=== PATIENT | male | born 1985 | race Caucasian/White ===

== ENCOUNTER 2020-09-04 19:25 | Inpatient (IN) | payer OTHER, SELFPAY ==
--- NOTE | ~2020-09-04 | CT_ITS ---
EXAMINATION: CT FOOT WITHOUT CONTRAST, RIGHT CLINICAL INFORMATION: Rule out abscess. COMPARISON: Previous x-ray from yesterday. TECHNIQUE: Axial images through the right foot without IV contrast. Sagittal and coronal reconstructions on the technologist workstation were performed. This CT examination was performed using dose optimization techniques as appropriate, variously including the following: *Automated exposure control *Adjustment of mA and/or kV according to patient size (this includes techniques or standardized protocols for targeted exams where dose is matched to indication/reason for exam; i.e. extremities or head) *Use of iterative reconstruction technique DLP: 180 mGy-cm FINDINGS: Bone alignment is normal. No fracture or dislocation is seen. Joint spaces are normal. There is diffuse subcutaneous edema of the foot. There is question of a small fluid collection adjacent to the plantar 5th metatarsal bone, for example, coronal reconstructed image 64 and sagittal reconstructed image 44 questionable for a small abscess. This measures 1 cm. No soft tissue foreign body is seen. CT/CT foot RT wo con IMPRESSION: Diffuse subcutaneous edema. Increased soft tissue adjacent to the plantar 5th metatarsal bone questionable for a soft tissue abscess.
--- NOTE | ~2020-09-04 | XR_ITS ---
EXAMINATION: XR FOOT, RIGHT CLINICAL INFORMATION: Infection. Rule out osteomyelitis. COMPARISON: None TECHNIQUE: AP, lateral, and oblique views of the right foot. FINDINGS: The bones and soft tissues are normal. No fracture. Alignment is anatomic. Joint spaces are maintained. XR/XR foot RT min 3V IMPRESSION: Normal right foot.
[2020-09-04 19:59] VITALS: BP 144/84; PULSE 80; RESP 28; TEMP 37.2; O2SAT 98; BMI 27.4
[2020-09-04 21:05] VITALS: BP 139/65; PULSE 84; RESP 16; O2SAT 98
--- NOTE | 2020-09-04 21:44 | ED_ITS ---
HPI - Wound/Laceration General Chief Complaint: Wound/Laceration Stated Complaint: ?Feet infection Time Seen by Provider: 09/04/20 21:40 Source: patient Mode of arrival: ambulatory History of Present Illness HPI narrative: 35-year-old male history of IVDA, otherwise no other significant medical history who presents with 1 week of worsening right foot redness /pain and unknown injury to the right foot, but patient denies injecting into his feet. Patient does report he has had chills but denies any fever, nausea, vomiting, abdominal pain, diarrhea, urinary pain/ burning /frequency, shortness of breath, chest pain / palpitations. Patient states his last use drugs was yesterday and that he typically uses heroin/ crack/cocaine /marijuana /daily cigarette smoker. Patient does have a remote history of depression and suicidality, but states he is not suicidal or homicidal today. Related Data Allergies Allergy/AdvReac Type Severity Reaction Status Date / Time Penicillins Allergy Severe Anaphylaxis Verified 09/04/20 21:42 Review of Systems Review of Systems: Pertinent positives and negatives as stated in HPI and 10 point review of systems is otherwise negative. PMFSH Past Medical History Source: nursing notes reviewed Medical History No known health problems Surgical History No history of previous surgery Social History Social History Advance Directives: No Advance Directives Information Provided: Yes Physical Exam Vital Signs: Vital Signs: Last Vital Signs Temp 99.0 F 09/04/20 19:59 Pulse 79 09/04/20 22:38 Resp 16 09/04/20 22:38 BP 139/65 09/04/20 21:05 Pulse Ox 100 09/04/20 22:38 Body Mass Index 27.4 VITAL SIGNS: Reviewed. GENERAL: Well developed, well nourished, in no acute distress. HEAD: Normocephalic/atraumatic EYES: PERRLA, EOMI EARS: Ext canals without abnormality NOSE: Nares patent bilateral OROPHARYNX: no oral lesions noted, posterior pharynx clear and non-erythematous without noted tonsillar enlargement/erythema/exudates NECK: Supple, no adenopathy LUNGS: Normal breath sounds. No adventitious sounds or accessory muscle use. SpO2<98> CARDIOVASCULAR: Regular rate and rhythm without noted murmurs ABDOMEN: Soft, non-tender, non-distended with bowel sounds. RIGHT FOOT: Entire foot is erythematous with laceration noted over the 5th tarsal, there is ulceration between the 4th and 5th digits, as well as a point of abscess over the MTP, palpable DP/PT with capillary refill less than 3 seconds and otherwise sensation is intact. LEFT FOOT: There is noted abrasion over the medial dorsum of the foot that does not appear to be infected and otherwise there are no ulcerations/ lesions noted to this left foot. SKIN: Inspection of the skin reveals no rashes NEUROLOGIC: Alert and oriented x 4. Strength and sensation to light touch were grossly intact x 4. Course Course Course Narrative: This is a 35-year-old male with history and clinical presentation consistent with cellulitis of the right foot, will investigate com ponent of osteomyelitis, patient will receive antibiotics and will be admitted. review of all investigations consistent with right foot cellulitis with elevated ESR / CRP, patient received antibiotics, no imaging evidence OM, this case was discussed with inpatient hospitalist who is agreeable for admission. Patient is also noted to be mildly hypokalemic and will receive IV repletion after confirming magnesium levels. MDM - Wound/Laceration Lab Data Result diagrams: 09/04/20 22:27 09/04/20 22:27 Labs: Lab Results 09/04/20 09/04/20 09/04/20 Range/Units 22:27 22:27 22:27 WBC 10.1 (4.8-10.8) X10*3/uL RBC 4.39 L (4.60-5.80) X10*6/uL Hgb 13.6 L (14.0-18.0) g/dl Hct 38.8 L (42-52) % MCV 88.4 (80-98) fL MCH 31.0 (27.0-33.0) pg MCHC 35.1 (31.0-36.0) g/dl RDW 12.2 (11.0-16.0) % Plt Count 276 (160-400) X10*3/uL MPV 9.6 (9.4-12.4) fL Immature Gran % (Auto) 0.3 (0.0-0.4) % Neut % (Auto) 75.3 H (45-73) % Lymph % (Auto) 13.8 L (20-40) % [place] % (Auto) 9.5 (2-11) % Eos % (Auto) 0.9 (0-4) % Baso % (Auto) 0.2 (0-2) % Lymph # (Auto) 1.4 (1.2-4.9) X10*3/uL [place] # (Auto) 1.0 (0.1-1.2) X10*3/uL Eos # (Auto) 0.1 (0.0-0.4) X10*3/uL Baso # (Auto) 0.0 (0.0-0.2) X10*3/uL Abs Immat Gran (auto) 0.03 (0.00-0.03) X10*3/uL Absolute Neuts (auto) 7.6 (2.0-8.3) X10*3/uL Absolute Nucleated RBC 0.000 (0.0-0.012) X10*3/uL Nucleated RBC % (auto) 0.0 (0.0-0.2) /100WBC ESR 28 H (0-15) MM/HR Sodium 136 (135-145) mmol/L Potassium 3.2 L (3.3-5.1) mmol/L Chloride 101 (96-108) mmol/L Carbon Dioxide 25 (22-29) mmol/L Anion Gap 13 (12-20) BUN 15 (9-16) mg/dL Creatinine 0.84 (0.5-1.4) mg/dL Estim Creat Clear Calc 122.2 Estimated GFR > 60 Random Glucose 106 (60-115) mg/dL Lactic Acid (0.5-2.0) mmol/L Calcium 8.7 (8.4-10.2) mg/dL Total Bilirubin 0.7 (0.0-1.0) mg/dL AST 112 H (5-37) U/L ALT 101 H (0-40) U/L Alkaline Phosphatase 61 (39-117) U/L C-Reactive Protein 4.33 H (< or = 0.50) mg/dL Total Protein 6.8 (6.5-8.0) g/dL Albumin 3.7 (3.5-5.0) g/dL Ethyl Alcohol mg/dL COVID-19 ([facility]) (Negative) COVID-19 Clin Com 09/04/20 09/04/20 09/04/20 Range/Units 22:27 22:27 22:28 WBC (4.8-10.8) X10*3/uL RBC (4.60-5.80) X10*6/uL Hgb (14.0-18.0) g/dl Hct (42-52) % MCV (80-98) fL MCH (27.0-33.0) pg MCHC (31.0-36.0) g/dl RDW (11.0-16.0) % Plt Count (160-400) X10*3/uL MPV (9.4-12.4) fL Immature Gran % (Auto) (0.0-0.4) % Neut % (Auto) (45-73) % Lymph % (Auto) (20-40) % [place] % (Auto) (2-11) % Eos % (Auto) (0-4) % Baso % (Auto) (0-2) % Lymph # (Auto) (1.2-4.9) X10*3/uL [place] # (Auto) (0.1-1.2) X10*3/uL Eos # (Auto) (0.0-0.4) X10*3/uL Baso # (Auto) (0.0-0.2) X10*3/uL Abs Immat Gran (auto) (0.00-0.03) X10*3/uL Absolute Neuts (auto) (2.0-8.3) X10*3/uL Absolute Nucleated RBC (0.0-0.012) X10*3/uL Nucleated RBC % (auto) (0.0-0.2) /100WBC ESR (0-15) MM/HR Sodium (135-145) mmol/L Potassium (3.3-5.1) mmol/L Chloride (96-108) mmol/L Carbon Dioxide (22-29) mmol/L Anion Gap (12-20) BUN (9-16) mg/dL Creatinine (0.5-1.4) mg/dL Estim Creat Clear Calc Estimated GFR Random Glucose (60-115) mg/dL Lactic Acid 1.0 (0.5-2.0) mmol/L Calcium (8.4-10.2) mg/dL Total Bilirubin (0.0-1.0) mg/dL AST (5-37) U/L ALT (0-40) U/L Alkaline Phosphatase (39-117) U/L C-Reactive Protein (< or = 0.50) mg/dL Total Protein (6.5-8.0) g/dL Albumin (3.5-5.0) g/dL Ethyl Alcohol < 10 mg/dL COVID-19 ([facility]) Negative (Negative) COVID-19 Clin Com See Note Discharge Plan Discharge Clinical Impression: Cellulitis of foot, right, Hypokalemia, Sepsis Patient Disposition: Admitted As Inpatient
[2020-09-04] MEDS: Acetaminophen 325 MG TABLET 975 MG PO (22:30)
[2020-09-04] MEDS: Ketorolac Tromethamine 15 MG/ML VIAL IVPUSH (22:30)
[2020-09-04] MEDS: cefEPime HCl 1 GM in 0.9 % Sodium Chloride 50 ML IV (22:31)
[2020-09-04 22:38] VITALS: PULSE 79; RESP 16; O2SAT 100
[2020-09-04 22:38] LABS: Basophils Percent Auto 0.2 % (0-2); Eosinophils Absolute Auto 0.1 X10*3/uL (0.0-0.4); Eosinophils Percent Auto 0.9 % (0-4); Hematocrit 38.8 % (42-52); Hemoglobin 13.6 g/dl (14.0-18.0); Imm Gran Abs Auto 0.03 X10*3/uL (0.00-0.03); Imm Gran Pct Auto 0.3 % (0.0-0.4); Lymphocytes Absolute Auto 1.4 X10*3/uL (1.2-4.9); Lymphocytes Percent Auto 13.8 % (20-40); MANUAL DIFF FLAG NO; Mean Corpuscular HGB Conc 35.1 g/dl (31.0-36.0); Mean Corpuscular Volume 88.4 fL (80-98); Mean Platelet Volume 9.6 fL (9.4-12.4); Monocytes Percent Auto 9.5 % (2-11); Neutrophils Absolute Auto 7.6 X10*3/uL (2.0-8.3); Neutrophils Percent Auto 75.3 % (45-73); Platelet Count 276 X10*3/uL (160-400); Red Blood Count 4.39 X10*6/uL (4.60-5.80); Red Cell Distribution Width 12.2 % (11.0-16.0); White Blood Count 10.1 X10*3/uL (4.8-10.8)
[2020-09-04 22:53] LABS: COVID-19 Test Negative (Negative); IDNOW Serial# 08D9AD1C
[2020-09-04 22:59] LABS: Ethanol < 10 mg/dL
[2020-09-04 23:12] LABS: Alanine Aminotransferase 101 U/L (0-40); Albumin Level 3.7 g/dL (3.5-5.0); Alkaline Phosphatase 61 U/L (39-117); Anion Gap 13 (12-20); Aspartate Amino Transferase 112 U/L (5-37); Bilirubin Total 0.7 mg/dL (0.0-1.0); Blood Urea Nitrogen 15 mg/dL (9-16); C Reactive Protein 4.33 mg/dL (< or = 0.50); Calcium 8.7 mg/dL (8.4-10.2); Carbon Dioxide 25 mmol/L (22-29); Chloride 101 mmol/L (96-108); Creatinine Clr Calc Pharmacy 122.2; Estimated Glomerular Filt Rate > 60; Glucose Random 106 mg/dL (60-115); Potassium 3.2 mmol/L (3.3-5.1); Sodium 136 mmol/L (135-145); Total Protein 6.8 g/dL (6.5-8.0)
[2020-09-04 23:14] LABS: Erythrocyte Sedimentation Rate 28 MM/HR (0-15)
[2020-09-04 23:34] LABS: Magnesium 1.8 mg/dL (1.6-2.6)
[2020-09-05] VITALS (7 sets, daily range): BP systolic 90–156; BP diastolic 41–87; PULSE 57–106; RESP 14–18; TEMP 36.1–37; O2SAT 94–99
[2020-09-05] MEDS: vancomycin HCL 1,000 MG in 0.9 % Sodium Chloride 250 ML 270 MG IV (00:52)
[2020-09-05] MEDS: Potassium Chloride ER 20 MEQ TAB.ER.PRT 60 MEQ PO (00:52)
--- NOTE | 2020-09-05 01:31 | PC.NURSE ---
Report given to REJI Rea on Med/Surg. Preparing for admission to unit.
[2020-09-05 02:38] LABS: Glucose Urine UA NEG (NEG); Leukocyte Esterase Urine NEG (NEG); Nitrite Urine NEG (NEG); Specific Gravity - Urine 1.015 (1.005-1.025); Urine Blood NEG (NEG); Urine Ketones NEG (NEG); Urine Protein NEG (NEG-TRACE)
[2020-09-05 02:40] LABS: Color Urine YELLOW
[2020-09-05 02:41] LABS: Appearance Urine CLEAR
[2020-09-05] MEDS: Potassium Chloride/H20 10 MEQ/100 ML PIGGYBACK 100 MEQ IV ×2 (02:50→04:12)
[2020-09-05] MEDS: Enoxaparin Sodium 40 MG/0.4 ML SYRINGE SUBCUT (02:51)
[2020-09-05] MEDS: 0.9 % Sodium Chloride Flush 3 ML SYRINGE IVFLUSH ×4 (02:51→23:40)
[2020-09-05 03:04] LABS: Amphetamine Screen Urine Not Detected (Not Detect); Barbiturates, Urine Not Detected (Not Detect); Benzodiazepines Screen Urine Not Detected (Not Detect); Cannabinoid Screen Urine POSITIVE (Not Detect); Cocaine Screen Urine POSITIVE (Not Detect); Opiate Screen Urine POSITIVE (Not Detect); Phencyclidine Screen Urine Not Detected (Not Detect)
[2020-09-05 05:59] LABS: MANUAL DIFF FLAG NO
--- NOTE | 2020-09-05 06:05 | P.HPHOSP_ITS ---
History of Present Illness Date of Service: 09/04/20 Chief Complaint: right foot pain this is a 35-year-old male with past medical history of polysubstance abuse including cocaine and heroin who is currently homeless presents to the hospital with complaints of right foot pain and skin changes of his right small a 2nd last 0. Patient reports that he noticed this for about a week, but he has been homeless, and had difficulty getting himself to the hospital. He denies any fever but has chills denies any abdominal pain nausea or vomiting, no chest pain, no urinary symptoms. all other review of system negative on arrival to the ED patient vitals significant for temp of 99?, heart rate of 80, respiratory rate of 28, blood pressure of 156/88, satting 99% on room air Labs are significant for WBC count of 10.1, hemoglobin of 13.6, ESR of 28, potassium 3.2, AST of 112, ALT of 101, CRP of 4.33, UDS positive for opiates, cocaine, and marijuana. Right foot x-ray shows no abnormality PMFSH Medical History No known health problems Polysubstance abuse Surgical History No history of previous surgery Social History Household Members: None Housing: Other Housing Other:: Homeless Do you presently have visiting nurse or other home services: No Patient Tobacco Use Status: Current everyday Tobacco user Tobacco use type: Cigarette Cigarette Packs Per Day: 1 Cigarettes Per Day: 20.0 Smoked in Last 30 Days: Yes Frequency of e-Cigarette/Vaping Use: Daily Patient Interested in Nicotine Replacement: Yes Patient Given Instructions on How to Stop Smoking: No Second Hand Smoke Exposure: No Use of substances other than those prescribed or required for medical reasons: Yes Substance Use Type: Crack/Cocaine, Heroin and Marijuana Substance Use Frequency: Daily Last Used Substance: Days (ago) Currently Displaying Signs/Symptoms of Drug Intoxication Withdrawal: No Any prior treatment program specific to substance use: No Have you been hit, kicked, punched, or otherwise hurt by someone within the past year? If so, by whom?: No Do you feel safe in your current relationship?: No Current Relationship Is there a partner from a previous relationship who is making you feel unsafe now?: No Advance Directives: No Advance Directives Information Provided: Yes Do you have thoughts of harming others: None Do you have a plan to hurt others: No Plan Recently lost weight without trying: Yes How much weight loss: 14-23 pounds Eating poorly because of decreased appetite: Yes Nutrition screen score: 5 Nutrition Risks: No Nutritional Risk Poor oral hygiene: No Meds Allergies Allergy/AdvReac Type Severity Reaction Status Date / Time Penicillins Allergy Severe Anaphylaxis Verified 09/04/20 21:42 Active Medications: Current Medications Generic Name Dose Route Start Last Admin Trade Name Freq PRN Reason Stop Dose Admin Acetaminophen 650 mg 09/05/20 01:27 Acetaminophen 325 Mg Tablet PO Q6H PRN Pain, Mild (Pain Scale 1-3) Docusate Sodium 100 mg 09/05/20 01:27 Docusate Sodium 100 Mg Capsule PO DAILY PRN Constipation Enoxaparin Sodium 40 mg 09/05/20 03:00 09/05/20 02:51 Enoxaparin Sodium 40 Mg/0.4 Ml Syringe SUBCUT 40 mg Q24H MEGAN Administration Vancomycin HCl 1,500 mg/ 500 mls @ 333.333 mls/hr 09/05/20 01:27 Sodium Chloride IV Q12H MEGAN Ondansetron HCl 4 mg 09/05/20 01:27 Ondansetron Hcl 4 Mg/2 Ml Vial IVPUSH Q8H PRN Nausea and Vomiting Pharmacy Consult 1 each 09/05/20 01:27 Consult Rx Vancomycin Dosing MISCELLANE DAILY PRN Consult order Sodium Chloride 3 ml 09/05/20 01:27 09/05/20 02:51 0.9 % Sodium Chloride Flush 3 Ml Syringe IVFLUSH 3 ml QSHIFT MEGAN Administration Physical Exam Vital Signs and Narrative: Vital Signs: Last Vital Signs Temp 98.6 F 09/05/20 02:15 Pulse 65 09/05/20 02:15 Resp 18 09/05/20 02:15 BP 156/87 H 09/05/20 02:15 Pulse Ox 99 09/05/20 02:15 Body Mass Index 27.4 Const: General: cooperative and no acute distress Orientation/consciousne ss: patient oriented x3 Eyes: General: appearance normal, both eyes and all related structures Resp: Effort & Inspection: normal respiratory effort and able to speak in complete sentences Cardio: Rate: regular rate Rhythm: regular rhythm GI: Palpation (GI): Soft to palpation Auscultation: normal bowel sounds Skin: Other: has skin sloughing around the small toe of right foot, erythema, tenderness, warmth Neuro: General: patient oriented x3 Cognition (Neuro): normal cognition Extrem: General: Yes normal to inspection and Yes no pedal edema Results Labs CBC and Chem 7: 09/04/20 22:27 09/04/20 22:27 Labs: Laboratory Results - last 24 hr 09/04/20 09/04/20 09/04/20 22:27 22:27 22:27 MCV 88.4 MCH 31.0 MCHC 35.1 RDW 12.2 Plt Count 276 MPV 9.6 Immature Gran % (Auto) 0.3 Neut % (Auto) 75.3 H Lymph % (Auto) 13.8 L [place] % (Auto) 9.5 Eos % (Auto) 0.9 Baso % (Auto) 0.2 Lymph # (Auto) 1.4 [place] # (Auto) 1.0 Eos # (Auto) 0.1 Baso # (Auto) 0.0 Abs Immat Gran (auto) 0.03 Absolute Neuts (auto) 7.6 Absolute Nucleated RBC 0.000 Nucleated RBC % (auto) 0.0 ESR 28 H Anion Gap 13 Estim Creat Clear Calc 122.2 Estimated GFR > 60 Random Glucose 106 Lactic Acid Calcium 8.7 Magnesium 1.8 Total Bilirubin 0.7 AST 112 H ALT 101 H Alkaline Phosphatase 61 C-Reactive Protein 4.33 H Total Protein 6.8 Albumin 3.7 Urine Color Urine Appearance Urine pH Ur Specific [place] Urine Protein Urine Glucose (UA) Urine Ketones Urine Blood Urine Nitrite Ur Leukocyte Esterase Urine Opiates Screen Ur Barbiturates Screen Ur Phencyclidine Scrn Ur Amphetamines Screen U Benzodiazepines Scrn Urine Cocaine Screen U Marijuana (THC) Screen Ethyl Alcohol COVID-19 ([facility]) COVID-19 Clin Com 09/04/20 09/04/20 09/04/20 22:27 22:27 22:28 MCV MCH MCHC RDW Plt Count MPV Immature Gran % (Auto) Neut % (Auto) Lymph % (Auto) [place] % (Auto) Eos % (Auto) Baso % (Auto) Lymph # (Auto) [place] # (Auto) Eos # (Auto) Baso # (Auto) Abs Immat Gran (auto) Absolute Neuts (auto) Absolute Nucleated RBC Nucleated RBC % (auto) ESR Anion Gap Estim Creat Clear Calc Estimated GFR Random Glucose Lactic Acid 1.0 Calcium Magnesium Total Bilirubin AST ALT Alkaline Phosphatase C-Reactive Protein Total Protein Albumin Urine Color Urine Appearance Urine pH Ur Specific [place] Urine Protein Urine Glucose (UA) Urine Ketones Urine Blood Urine Nitrite Ur Leukocyte Esterase Urine Opiates Screen Ur Barbiturates Screen Ur Phencyclidine Scrn Ur Amphetamines Screen U Benzodiazepines Scrn Urine Cocaine Screen U Marijuana (THC) Screen Ethyl Alcohol < 10 COVID-19 ([facility]) Negative COVID-19 Clin Com See Note 09/05/20 09/05/20 02:15 02:15 MCV MCH MCHC RDW Plt Count MPV Immature Gran % (Auto) Neut % (Auto) Lymph % (Auto) [place] % (Auto) Eos % (Auto) Baso % (Auto) Lymph # (Auto) [place] # (Auto) Eos # (Auto) Baso # (Auto) Abs Immat Gran (auto) Absolute Neuts (auto) Absolute Nucleated RBC Nucleated RBC % (auto) ESR Anion Gap Estim Creat Clear Calc Estimated GFR Random Glucose Lactic Acid Calcium Magnesium Total Bilirubin AST ALT Alkaline Phosphatase C-Reactive Protein Total Protein Albumin Urine Color YELLOW Urine Appearance CLEAR Urine pH 6.0 Ur Specific [place] 1.015 Urine Protein NEG Urine Glucose (UA) NEG Urine Ketones NEG Urine Blood NEG Urine Nitrite NEG Ur Leukocyte Esterase NEG Urine Opiates Screen POSITIVE H Ur Barbiturates Screen Not Detected Ur Phencyclidine Scrn Not Detected Ur Amphetamines Screen Not Detected U Benzodiazepines Scrn Not Detected Urine Cocaine Screen POSITIVE H U Marijuana (THC) Screen POSITIVE H Ethyl Alcohol COVID-19 ([facility]) COVID-19 Clin Com Imaging Radiologist's Impressions: Impressions Foot X-Ray 09/04/20 21:42 IMPRESSION: Normal right foot. Assessment and Plan (1) Cellulitis of foot, right: Status: Acute (2) Hypokalemia: Status: Acute (3) Polysubstance abuse: Status: Inactive this is a homeless 85-year-old male with past medical history of polysubstance abuse who presents to the hospital with right foot pain # cellulitis of right foot - localized to the right small toe - has no leukocytosis, afebrile - elevated ESR and CRP - will treat him with IV antibiotics - follow cultures # hypokalemia - repleted - fall potassium # polysubstance abuse - tobacco, heroin, as well as cocaine - patient interested in nicotine replacement therapy - will also start him on clonidine as well as hydroxyzine p.r.n. for potential withdrawal symptoms - may need Suboxone if agreeable once he starts withdrawing - last use day before admission DVT prophylaxis: Lovenox Quality Stroke Does the patient have a stroke diagnosis?: No VTE Prior VTE?: No VTE Risk Level:: Medical - moderate - high VTE Device Contraindication: Treatment Not Indicated VTE Drug Contraindication: N/A - Med Ordered
[2020-09-05 06:11] LABS: Basophils Percent Auto 0.3 % (0-2); Eosinophils Absolute Auto 0.2 X10*3/uL (0.0-0.4); Eosinophils Percent Auto 1.7 % (0-4); Hematocrit 40.2 % (42-52); Hemoglobin 13.8 g/dl (14.0-18.0); Imm Gran Abs Auto 0.04 X10*3/uL (0.00-0.03); Imm Gran Pct Auto 0.4 % (0.0-0.4); Lymphocytes Percent Auto 18.4 % (20-40); Mean Corpuscular HGB Conc 34.3 g/dl (31.0-36.0); Mean Corpuscular Hemoglobin 30.5 pg (27.0-33.0); Mean Corpuscular Volume 88.9 fL (80-98); Mean Platelet Volume 9.6 fL (9.4-12.4); Monocytes Absolute Auto 1.4 X10*3/uL (0.1-1.2); Monocytes Percent Auto 12.4 % (2-11); Neutrophils Absolute Auto 7.3 X10*3/uL (2.0-8.3); Neutrophils Percent Auto 66.8 % (45-73); Platelet Count 288 X10*3/uL (160-400); Red Blood Count 4.52 X10*6/uL (4.60-5.80); Red Cell Distribution Width 12.4 % (11.0-16.0)
[2020-09-05 06:36] LABS: Anion Gap 12 (12-20); Blood Urea Nitrogen 11 mg/dL (9-16); Calcium 8.3 mg/dL (8.4-10.2); Carbon Dioxide 24 mmol/L (22-29); Chloride 105 mmol/L (96-108); Creatinine Clr Calc Pharmacy 133.4; Estimated Glomerular Filt Rate > 60; Glucose Random 103 mg/dL (60-115); Potassium 3.7 mmol/L (3.3-5.1); Sodium 137 mmol/L (135-145)
--- NOTE | 2020-09-05 07:22 | PHA.MEDREC ---
Pharmacy Consult ? Medication Reconciliation Pharmacy has completed the medication reconciliation. Patient reports he was on clonidine 0.3mg at night and clonidine 0.1mg in the morning, but he no longer has a PCP so he cannot get prescriptions anymore. Joelle Ga, PharmD
[2020-09-05] MEDS: cloNIDine HCL 0.1 MG TABLET PO ×2 (09:42→16:06)
[2020-09-05] MEDS: Nicotine 21 MG PATCH.TD24 TRANSDERMA (09:43)
[2020-09-05] MEDS: Clindamycin Phosphate/D5W 600 MG/50 ML PIGGYBACK 100 MG IV ×2 (09:57→17:10)
--- NOTE | 2020-09-05 11:46 | PC.NURSE ---
Skin assessment completed today. Patient has right foot cellulitis localized to 5th toe area with some scabbed areas. No dressing at this time, patient on antibiotics for infection. Scratches noticed on left foot, no other skin issues seen.
--- NOTE | 2020-09-05 12:00 | MHC.CM.PN ---
EMR REVIEWED, PT ADMITTED W/RIGHT FOOT PAIN & CELLULITIS, CM MET W/PT WHO KEPT HIS EYES CLOSED THROUGHOUT INTERVIEW, PT REPORTS HE HAS BEEN STAY WITH A FRIEND. IS FULLY INDEPENDENT W/CARE, NO HOME SERVICES, PT ALSO HAS NO PCP AND DOES NOT RECALL WHO HE'S HAD IN THE PAST, PT PROVIDED PAMPHLET W/C PROVIDERS AND ENCOURAGED TO SIGN UP W/PCP, PT DOES NOT APPEAR MOTIVATED TO DO SO, PT WAS OFFERED CARE TEAM & TO MEET W/RECOVERY SUPPORT NURSE HOWEVER PT IS DECLINING AT THIS TIME. D/C PLAN: RETURN TO FRIENDS W/NO SERVICES VS STRUCTURAL LAYOUT WORKER IV ABX AT SNF, PT WOULD MOST LIKELY NEED TO START METHADONE MAINT. TO TOLERATE MCC IV ABX.
--- NOTE | 2020-09-05 13:10 | MHC.CLN ---
NUTRITION NOTE/SUPPLEMENT PATIENT REPORTS 15# WEIGHT LOSS X 2 WEEKS, -7.9%. STATED POOR INTAKE X 2 WEEKS DUE TO SOCIO/ECONOMIC ISSUES. WOULD LIKE ENSURE SUPPLEMENT THREE TIMES DAILY. STATED THAT LIKES SUPPLEMENT. REPORTS THAT EATING WELL DURING ADMISSION.
--- NOTE | 2020-09-05 13:14 | HO.PM.IMPN ---
Subjective Subjective Date of Service: 09/05/20 Interval History: the patient was seen and evaluated this morning Laying in bed, complaining of significant amount of pain in his right foot Denies any fever, chills or shortness of breath No reported other overnight events. Systemic review: No fever, chills or weakness No chest pain, palpitation No shortness of breath or coughing No abdominal pain, nausea or vomiting No urinary symptoms fluid to rash, swelling and pain Physical Exam Vital Signs: Vital Signs: Last Vital Signs Temp 97.7 F 09/05/20 11:50 Pulse 99 09/05/20 11:50 Resp 18 09/05/20 11:50 BP 128/74 09/05/20 11:50 Pulse Ox 98 09/05/20 11:50 Body Mass Index 27.4 Const: Other: Constitutional : Alert, oriented, Neck : Normal inspection, Supple Cardiovascular : RRR, S1 S2, no lower extremity edema Respiratory : Good bilateral air entry, no crackles, wheezes or rhonchi Gastrointestinal: soft, lax, Normal bowel sounds, Non tender Skin : Warm/Dry, right foot dorsal area swelling, erythema and significant among the tenderness Neurological : Alert & oriented x3, No focal deficit Objective Data Current Medications Generic Name Dose Route Start Last Admin Trade Name Freq PRN Reason Stop Dose Admin Acetaminophen 650 mg 09/05/20 01:27 Acetaminophen 325 Mg Tablet PO Q6H PRN Pain, Mild (Pain Scale 1-3) Clonidine HCl 0.1 mg 09/05/20 06:06 Clonidine Hcl 0.1 Mg Tablet PO TID PRN withdrawal Protocol Clonidine HCl 0.1 mg 09/05/20 09:00 09/05/20 09:42 Clonidine Hcl 0.1 Mg Tablet PO 0.1 mg DAILY MEGAN Administration Protocol Clonidine HCl 0.3 mg 09/05/20 21:00 Clonidine Hcl 0.1 Mg Tablet PO BEDTIME MEGAN Protocol Docusate Sodium 100 mg 09/05/20 01:27 Docusate Sodium 100 Mg Capsule PO DAILY PRN Constipation Enoxaparin Sodium 40 mg 09/05/20 03:00 09/05/20 02:51 Enoxaparin Sodium 40 Mg/0.4 Ml Syringe SUBCUT 40 mg Q24H MEGAN Administration Hydroxyzine HCl 25 mg 09/05/20 06:06 Hydroxyzine Hcl 25 Mg Tablet PO Q6H PRN anxiety/restlessness Clindamycin Phosphate 600 mg in 50 mls @ 100 mls/hr 09/05/20 09:45 09/05/20 10:51 Cleocin IV Infused Q8H MEGAN Infusion Nicotine 21 mg 09/05/20 09:00 09/05/20 09:43 Nicotine 21 Mg Patch.Td24 TRANSDERMA 21 mg DAILY MEGAN Administration Ondansetron HCl 4 mg 09/05/20 01:27 Ondansetron Hcl 4 Mg/2 Ml Vial IVPUSH Q8H PRN Nausea and Vomiting Pharmacy Consult 1 each 09/05/20 01:27 Consult Rx Vancomycin Dosing MISCELLANE DAILY PRN Consult order Pharmacy Consult 1 each 09/05/20 07:23 Consult Rx Perform Med Rec MISCELLANE ONCE PRN Consult order Sodium Chloride 3 ml 09/05/20 01:27 09/05/20 09:43 0.9 % Sodium Chloride Flush 3 Ml Syringe IVFLUSH 3 ml QSHIFT MEGAN Administration Labs CBC & Chem 7: 09/05/20 05:43 09/05/20 05:43 Labs: Laboratory Results - last 24 hr 09/04/20 09/04/20 09/04/20 22:27 22:27 22:27 WBC 10.1 RBC 4.39 L Hgb 13.6 L Hct 38.8 L MCV 88.4 MCH 31.0 MCHC 35.1 RDW 12.2 Plt Count 276 MPV 9.6 Immature Gran % (Auto) 0.3 Neut % (Auto) 75.3 H Lymph % (Auto) 13.8 L [place] % (Auto) 9.5 Eos % (Auto) 0.9 Baso % (Auto) 0.2 Lymph # (Auto) 1.4 [place] # (Auto) 1.0 Eos # (Auto) 0.1 Baso # (Auto) 0.0 Abs Immat Gran (auto) 0.03 Absolute Neuts (auto) 7.6 Absolute Nucleated RBC 0.000 Nucleated RBC % (auto) 0.0 ESR 28 H Sodium 136 Potassium 3.2 L Chloride 101 Carbon Dioxide 25 Anion Gap 13 BUN 15 Creatinine 0.84 Estim Creat Clear Calc 122.2 Estimated GFR > 60 Random Glucose 106 Lactic Acid Calcium 8.7 Magnesium 1.8 Total Bilirubin 0.7 AST 112 H ALT 101 H Alkaline Phosphatase 61 C-Reactive Protein 4.33 H Total Protein 6.8 Albumin 3.7 Urine Color Urine Appearance Urine pH Ur Specific [place] Urine Protein Urine Glucose (UA) Urine Ketones Urine Blood Urine Nitrite Ur Leukocyte Esterase Urine Opiates Screen Ur Barbiturates Screen Ur Phencyclidine Scrn Ur Amphetamines Screen U Benzodiazepines Scrn Urine Cocaine Screen U Marijuana (THC) Screen Ethyl Alcohol COVID-19 ([facility]) COVID-19 Clin Com 09/04/20 09/04/20 09/04/20 22:27 22:27 22:28 WBC RBC Hgb Hct MCV MCH MCHC RDW Plt Count MPV Immature Gran % (Auto) Neut % (Auto) Lymph % (Auto) [place] % (Auto) Eos % (Auto) Baso % (Auto) Lymph # (Auto) [place] # (Auto) Eos # (Auto) Baso # (Auto) Abs Immat Gran (auto) Absolute Neuts (auto) Absolute Nucleated RBC Nucleated RBC % (auto) ESR Sodium Potassium Chloride Carbon Dioxide Anion Gap BUN Creatinine Estim Creat Clear Calc Estimated GFR Random Glucose Lactic Acid 1.0 Calcium Magnesium Total Bilirubin AST ALT Alkaline Phosphatase C-Reactive Protein Total Protein Albumin Urine Color Urine Appearance Urine pH Ur Specific [place] Urine Protein Urine Glucose (UA) Urine Ketones Urine Blood Urine Nitrite Ur Leukocyte Esterase Urine Opiates Screen Ur Barbiturates Screen Ur Phencyclidine Scrn Ur Amphetamines Screen U Benzodiazepines Scrn Urine Cocaine Screen U Marijuana (THC) Screen Ethyl Alcohol < 10 COVID-19 ([facility]) Negative COVID-19 Clin Com See Note 09/05/20 09/05/20 09/05/20 02:15 02:15 05:43 WBC 11.0 H RBC 4.52 L Hgb 13.8 L Hct 40.2 L MCV 88.9 MCH 30.5 MCHC 34.3 RDW 12.4 Plt Count 288 MPV 9.6 Immature Gran % (Auto) 0.4 Neut % (Auto) 66.8 Lymph % (Auto) 18.4 L [place] % (Auto) 12.4 H Eos % (Auto) 1.7 Baso % (Auto) 0.3 Lymph # (Auto) 2.0 [place] # (Auto) 1.4 H Eos # (Auto) 0.2 Baso # (Auto) 0.0 Abs Immat Gran (auto) 0.04 H Absolute Neuts (auto) 7.3 Absolute Nucleated RBC 0.000 Nucleated RBC % (auto) 0.0 ESR Sodium Potassium Chloride Carbon Dioxide Anion Gap BUN Creatinine Estim Creat Clear Calc Estimated GFR Random Glucose Lactic Acid Calcium Magnesium Total Bilirubin AST ALT Alkaline Phosphatase C-Reactive Protein Total Protein Albumin Urine Color YELLOW Urine Appearance CLEAR Urine pH 6.0 Ur Specific [place] 1.015 Urine Protein NEG Urine Glucose (UA) NEG Urine Ketones NEG Urine Blood NEG Urine Nitrite NEG Ur Leukocyte Esterase NEG Urine Opiates Screen POSITIVE H Ur Barbiturates Screen Not Detected Ur Phencyclidine Scrn Not Detected Ur Amphetamines Screen Not Detected U Benzodiazepines Scrn Not Detected Urine Cocaine Screen POSITIVE H U Marijuana (THC) Screen POSITIVE H Ethyl Alcohol COVID-19 ([facility]) COVID-19 [employer] Com 09/05/20 05:43 WBC RBC Hgb Hct MCV MCH MCHC RDW Plt Count MPV Immature Gran % (Auto) Neut % (Auto) Lymph % (Auto) [place] % (Auto) Eos % (Auto) Baso % (Auto) Lymph # (Auto) [place] # (Auto) Eos # (Auto) Baso # (Auto) Abs Immat Gran (auto) Absolute Neuts (auto) Absolute Nucleated RBC Nucleated RBC % (auto) ESR Sodium 137 Potassium 3.7 Chloride 105 Carbon Dioxide 24 Anion Gap 12 BUN 11 Creatinine 0.77 Estim Creat Clear Calc 133.4 Estimated GFR > 60 Random Glucose 103 Lactic Acid Calcium 8.3 L Magnesium Total Bilirubin AST ALT Alkaline Phosphatase C-Reactive Protein Total Protein Albumin Urine Color Urine Appearance Urine pH Ur Specific [place] Urine Protein Urine Glucose (UA) Urine Ketones Urine Blood Urine Nitrite Ur Leukocyte Esterase Urine Opiates Screen Ur Barbiturates Screen Ur Phencyclidine Scrn Ur Amphetamines Screen U Benzodiazepines Scrn Urine Cocaine Screen U Marijuana (THC) Screen Ethyl Alcohol COVID-19 ([facility]) COVID-19 Clin Com Quality Stroke Does the patient have a stroke diagnosis?: No VTE Prior VTE?: No VTE Risk Level:: Medical - moderate - high VTE Device Contraindication: Treatment Not Indicated VTE Drug Contraindication: N/A - Med Ordered Assessment and Plan (1) Cellulitis of foot, right: Status: Acute (2) Hypokalemia: Status: Acute (3) Polysubstance abuse: Status: Inactive Assessment and Plan: this is a homeless 85-year-old male with past medical history of polysubstance abuse who presents to the hospital with right foot pain cellulitis of right foot over the dorsal part of the food concerning for possible abscess CT scan of the foot showing possible abscess near the little t pending cultures antibiotics changed to clindamycin To get surgery evaluation # hypokalemia repleted monitor BMP # polysubstance abuse tobacco, heroin, as well as cocaine nicotine patches continue p.r.n. clonidine as well as hydroxyzine for potential withdrawal symptoms addiction team to evaluate the patient DVT prophylaxis Lovenox
--- NOTE | 2020-09-05 13:39 | PM.CNGS ---
History of Present Illness Consult details Consult date: 09/05/20 Requesting physician: Sergey Hess Narrative: History is obtained from patient's chart as patient is very sleepy and not responsive to questioning. In brief, he is a 35-year-old male patient presenting to the emergency department last evening with complaints of a 1 week history of right foot pain. He has a history of IVDA, including heroin/ crack / cocaine /marijuana, who is homeless. he denies fever but did report chills. He denies previous surgery on the feet or previous foot infections. He was found to have an area of pain and redness on the ventral surface of the right foot . Laboratories today revealed WBC of 11.0. A right foot x-ray revealed no osteomyelitis. CT of the right foot however revealed diffuse subcutaneous edema. Increased soft tissue adjacent to the plantar 5th metatarsal bone questionable for a soft tissue abscess. Surgical consultation was requested for possible incision and drainage of the right foot. Review of Systems Review of Systems: Yes Unobtainable due to mental status PMFSH Past Medical History Medical History No known health problems Polysubstance abuse Surgical History Surgical History No history of previous surgery Social History Social History Household Members: None Housing: Other Housing Other:: Homeless Do you presently have visiting nurse or other home services: No Patient Tobacco Use Status: Current everyday Tobacco user Tobacco use type: Cigarette Cigarette Packs Per Day: 1 Cigarettes Per Day: 20.0 Smoked in Last 30 Days: Yes Frequency of e-Cigarette/Vaping Use: Daily Patient Interested in Nicotine Replacement: Yes Patient Given Instructions on How to Stop Smoking: No Second Hand Smoke Exposure: No Use of substances other than those prescribed or required for medical reasons: Yes Substance Use Type: Crack/Cocaine, Heroin and Marijuana Substance Use Frequency: Daily Last Used Substance: Days (ago) Currently Displaying Signs/Symptoms of Drug Intoxication Withdrawal: No Any prior treatment program specific to substance use: No Have you been hit, kicked, punched, or otherwise hurt by someone within the past year? If so, by whom?: No Do you feel safe in your current relationship?: No Current Relationship Is there a partner from a previous relationship who is making you feel unsafe now?: No Advance Directives: No Advance Directives Information Provided: Yes Do you have thoughts of harming others: None Do you have a plan to hurt others: No Plan Recently lost weight without trying: Yes How much weight loss: 14-23 pounds Eating poorly because of decreased appetite: Yes Nutrition screen score: 5 Nutrition Risks: No Nutritional Risk Poor oral hygiene: No service: No Current occupational status: unemployed Meds Allergies Allergy/AdvReac Type Severity Reaction Status Date / Time Penicillins Allergy Severe Anaphylaxis Verified 09/04/20 21:42 Active Medications: Current Medications Generic Name Dose Route Start Last Admin Trade Name Freq PRN Reason Stop Dose Admin Acetaminophen 650 mg 09/05/20 01:27 Acetaminophen 325 Mg Tablet PO Q6H PRN Pain, Mild (Pain Scale 1-3) Clonidine HCl 0.1 mg 09/05/20 06:06 Clonidine Hcl 0.1 Mg Tablet PO TID PRN withdrawal Protocol Clonidine HCl 0.1 mg 09/05/20 09:00 09/05/20 09:42 Clonidine Hcl 0.1 Mg Tablet PO 0.1 mg DAILY MEGAN Administration Protocol Clonidine HCl 0.3 mg 09/05/20 21:00 Clonidine Hcl 0.1 Mg Tablet PO BEDTIME MEGAN Protocol Docusate Sodium 100 mg 09/05/20 01:27 Docusate Sodium 100 Mg Capsule PO DAILY PRN Constipation Enoxaparin Sodium 40 mg 09/05/20 03:00 09/05/20 02:51 Enoxaparin Sodium 40 Mg/0.4 Ml Syringe SUBCUT 40 mg Q24H MEGAN Administration Hydroxyzine HCl 25 mg 09/05/20 06:06 Hydroxyzine Hcl 25 Mg Tablet PO Q6H PRN anxiety/restlessness Clindamycin Phosphate 600 mg in 50 mls @ 100 mls/hr 09/05/20 09:45 09/05/20 10:51 Cleocin IV Infused Q8H MEGAN Infusion Nicotine 21 mg 09/05/20 09:00 09/05/20 09:43 Nicotine 21 Mg Patch.Td24 TRANSDERMA 21 mg DAILY MEGAN Administration Ondansetron HCl 4 mg 09/05/20 01:27 Ondansetron Hcl 4 Mg/2 Ml Vial IVPUSH Q8H PRN Nausea and Vomiting Pharmacy Consult 1 each 09/05/20 01:27 Consult Rx Vancomycin Dosing MISCELLANE DAILY PRN Consult order Pharmacy Consult 1 each 09/05/20 07:23 Consult Rx Perform Med Rec MISCELLANE ONCE PRN Consult order Sodium Chloride 3 ml 09/05/20 01:27 09/05/20 09:43 0.9 % Sodium Chloride Flush 3 Ml Syringe IVFLUSH 3 ml QSHIFT [facility] Administration Home Medications Medication Instructions Recorded Confirmed Last Taken Type clonidine HCl 0.1 mg PO DAILY 09/05/20 09/05/20 Unknown History clonidine HCl 0.3 mg PO BEDTIME 09/05/20 09/05/20 Unknown History Physical Exam Vital Signs: Vital Signs: Last Vital Signs Temp 97.7 F 09/05/20 11:50 Pulse 99 09/05/20 11:50 Resp 18 09/05/20 11:50 BP 128/74 09/05/20 11:50 Pulse Ox 98 09/05/20 11:50 Body Mass Index 27.4 Const: General: intoxicated appearing, lethargic and poor hygiene Nutritional Appearance: thin Orientation/consciousness: lethargic Limitations: altered mental status Neck: Neck: Yes normal visual inspection Resp: Effort & Inspection: normal respiratory effort, no cough, no stridor and not tachypneic GI: Inspection: Yes normal to inspection Skin: General skin exam: crusts, erythema and Excoriation Extrem: Other: bilateral feet are very dirty. Area of erythema over the 5th metatarsal the right foot is tender to palpation. No fluctuant area however he can be identified to allow for incision and drainage. No necrotic skin identified. Left foot with multiple scabs but no definite abscess or cellulitis. Psych: Appearance: disheveled Affect: Indifferent affect present Results Labs Result diagrams: 09/05/20 05:43 09/05/20 05:43 Labs: Abnormal lab results 09/04/20 09/04/20 09/04/20 Range/Units 22:27 22:27 22:27 WBC (4.8-10.8) X10*3/uL RBC 4.39 L (4.60-5.80) X10*6/uL Hgb 13.6 L (14.0-18.0) g/dl Hct 38.8 L (42-52) % Neut % (Auto) 75.3 H (45-73) % Lymph % (Auto) 13.8 L (20-40) % [place] % (Auto) (2-11) % [place] # (Auto) (0.1-1.2) X10*3/uL Abs Immat Gran (auto) (0.00-0.03) X10*3/uL ESR 28 H (0-15) MM/HR Potassium 3.2 L (3.3-5.1) mmol/L Calcium (8.4-10.2) mg/dL AST 112 H (5-37) U/L ALT 101 H (0-40) U/L C-Reactive Protein 4.33 H (< or = 0.50) mg/dL Urine Opiates Screen (Not Detect) Urine Cocaine Screen (Not Detect) U Marijuana (THC) Screen (Not Detect) 09/05/20 09/05/20 09/05/20 Range/Units 02:15 05:43 05:43 WBC 11.0 H (4.8-10.8) X10*3/uL RBC 4.52 L (4.60-5.80) X10*6/uL Hgb 13.8 L (14.0-18.0) g/dl Hct 40.2 L (42-52) % Neut % (Auto) (45-73) % Lymph % (Auto) 18.4 L (20-40) % [place] % (Auto) 12.4 H (2-11) % [place] # (Auto) 1.4 H (0.1-1.2) X10*3/uL Abs Immat Gran (auto) 0.04 H (0.00-0.03) X10*3/uL ESR (0-15) MM/HR Potassium (3.3-5.1) mmol/L Calcium 8.3 L (8.4-10.2) mg/dL AST (5-37) U/L ALT (0-40) U/L C-Reactive Protein (< or = 0.50) mg/dL Urine Opiates Screen POSITIVE H (Not Detect) Urine Cocaine Screen POSITIVE H (Not Detect) U Marijuana (THC) Screen POSITIVE H (Not Detect) Short CBC 09/04/20 09/05/20 Range/Units 22:27 05:43 WBC 10.1 11.0 H (4.8-10.8) X10*3/uL Hgb 13.6 L 13.8 L (14.0-18.0) g/dl Hct 38.8 L 40.2 L (42-52) % Plt Count 276 288 (160-400) X10*3/uL BMP 09/04/20 09/05/20 22:27 05:43 Sodium 136 137 Potassium 3.2 L 3.7 Chloride 101 105 Carbon Dioxide 25 24 BUN 15 11 Creatinine 0.84 0.77 Calcium 8.7 8.3 L Liver Function 09/04/20 Range/Units 22:27 Total Bilirubin 0.7 (0.0-1.0) mg/dL AST 112 H (5-37) U/L ALT 101 H (0-40) U/L Alkaline Phosphatase 61 (39-117) U/L Albumin 3.7 (3.5-5.0) g/dL Urine 09/05/20 Range/Units 02:15 Urine Color YELLOW Urine Appearance CLEAR Urine pH 6.0 (5.0-8.0) Ur Specific [place] 1.015 (1.005-1.025) Urine Protein NEG (NEG-TRACE) MG/DL Urine Glucose (UA) NEG (NEG) MG/DL All other labs normal. Assessment and Plan (1) Cellulitis of foot, right: Status: Acute 35-year-old male patient with a history of IVDA, homelessness, presenting in disheveled condition with pain in the right foot Of approximately 1 week duration. The etiology of the pain is uncertain due to the patient's intoxicated state. Examination today reveals an area of tenderness over the ventral surface of the right foot especially over the 5th metatarsal. No definite fluctuant area is identified. The CT of the foot was reviewed independently and diffuse swelling is identified. An area of question abscess is noted adjacent to the 5th metatarsal but no osteomyelitis identified. There is no clear area for incision and drainage at this time. Recommend continuing IV antibiotics and we will follow along during this hospitalization. Discussed with the patient and he seemed to express understanding. Procedures Date of Service Date of Service: 09/05/20
[2020-09-05] MEDS: hydrOXYzine HCL 25 MG TABLET PO (16:06)
[2020-09-05] MEDS: LORazepam 0.5 MG TABLET PO (17:08)
[2020-09-05] MEDS: Ketorolac Tromethamine 30 MG/ML VIAL IVPUSH (17:08)
[2020-09-05] MEDS: Morphine Sulfate 4 MG/ML CARTRIDGE 3 MG IVPUSH (17:09)
--- NOTE | 2020-09-05 17:16 | P.EN_ITS ---
Event Note Date of Service: 09/05/20 Event Note: Addiction note: Consult received for patient with OUD currently medically admitted with cellulitis to his foot. This writer technical publications went to see patient on 3 separate occasions, each time patient sound asleep and when asked, about withdrawal sx, he denied having any. Discussed with provider. To be monitored for withdrawal sx and treated as appropriate
[2020-09-05] MEDS: Ibuprofen 400 MG TABLET PO (21:10)
[2020-09-05] MEDS: cloNIDine HCL 0.1 MG TABLET 0.3 MG PO (21:10)
[2020-09-06] MEDS: Lactated Ringers 500 ML IV (02:32)
[2020-09-06] MEDS: Enoxaparin Sodium 40 MG/0.4 ML SYRINGE SUBCUT (03:35)
[2020-09-06] MEDS: Clindamycin Phosphate/D5W 600 MG/50 ML PIGGYBACK 100 MG IV ×3 (03:36→18:07)
[2020-09-06 04:00] VITALS: BP 115/64; PULSE 57; RESP 18; TEMP 36.3; O2SAT 99
[2020-09-06 08:00] VITALS: BP 95/42; PULSE 66; RESP 18; TEMP 35.9; O2SAT 98
[2020-09-06 08:06] LABS: Hematocrit 39.6 % (42-52); Hemoglobin 13.3 g/dl (14.0-18.0); Mean Corpuscular HGB Conc 33.6 g/dl (31.0-36.0); Mean Corpuscular Hemoglobin 30.4 pg (27.0-33.0); Mean Corpuscular Volume 90.6 fL (80-98); Mean Platelet Volume 9.6 fL (9.4-12.4); Platelet Count 276 X10*3/uL (160-400); Red Blood Count 4.37 X10*6/uL (4.60-5.80); Red Cell Distribution Width 12.5 % (11.0-16.0); White Blood Count 8.8 X10*3/uL (4.8-10.8)
[2020-09-06 08:26] LABS: Anion Gap 12 (12-20); Blood Urea Nitrogen 9 mg/dL (9-16); Calcium 8.4 mg/dL (8.4-10.2); Carbon Dioxide 24 mmol/L (22-29); Chloride 108 mmol/L (96-108); Creatinine Clr Calc Pharmacy 148.8; Estimated Glomerular Filt Rate > 60; Glucose Random 97 mg/dL (60-115); Potassium 4.1 mmol/L (3.3-5.1); Sodium 140 mmol/L (135-145)
--- NOTE | 2020-09-06 09:21 | PM.PNGS ---
Subjective Subjective Date of Service: 09/06/20 Interval history: describes pain on right foot no other complaints no fever Physical Exam Vital Signs: Vital Signs: Last Vital Signs Temp 97.4 F 09/06/20 04:00 Pulse 57 09/06/20 04:00 Resp 18 09/06/20 04:00 BP 115/64 09/06/20 04:00 Pulse Ox 99 09/06/20 04:00 Body Mass Index 27.4 Laboratory Results - last 24 hr 09/06/20 09/06/20 07:42 07:42 WBC 8.8 RBC 4.37 L Hgb 13.3 L Hct 39.6 L MCV 90.6 MCH 30.4 MCHC 33.6 RDW 12.5 Plt Count 276 MPV 9.6 Absolute Nucleated RBC 0.000 Nucleated RBC % (a uto) 0.0 Sodium 140 Potassium 4.1 Chloride 108 Carbon Dioxide 24 Anion Gap 12 BUN 9 Creatinine 0.69 Estim Creat Clear Calc 148.8 Estimated GFR > 60 Random Glucose 97 Calcium 8.4 Const: General: comfortable and no acute distress Resp: Effort & Inspection: normal respiratory effort Cardio: Rate: regular rate GI: Palpation (GI): Soft to palpation and nontender Extrem: Other: cellulitic changes on dorsum of right foot, no fluctuance, no obvious induration, some edema Progress Note: A&P Assessment and plan (1) Cellulitis of foot, right: Status: Acute Assessment and Plan: continue IV abx elevate foot on pillow no need for debridement/ I and D at this time will follow Fall Risk Details Current Medications: Current Medications Generic Name Dose Route Start Last Admin Trade Name Kemi PRN Reason Stop Dose Admin Acetaminophen 650 mg 09/05/20 01:27 Acetaminophen 325 Mg Tablet PO Q6H PRN Pain, Mild (Pain Scale 1-3) Clonidine HCl 0.1 mg 09/05/20 06:06 09/05/20 16:06 Clonidine Hcl 0.1 Mg Tablet PO 0.1 mg TID PRN Administration withdrawal Protocol Clonidine HCl 0.1 mg 09/05/20 09:00 09/05/20 09:42 Clonidine Hcl 0.1 Mg Tablet PO 0.1 mg DAILY MEGAN Administration Protocol Clonidine HCl 0.3 mg 09/05/20 21:00 09/05/20 21:10 Clonidine Hcl 0.1 Mg Tablet PO 0.3 mg BEDTIME MEGAN Administration Protocol Docusate Sodium 100 mg 09/05/20 01:27 Docusate Sodium 100 Mg Capsule PO DAILY PRN Constipation Enoxaparin Sodium 40 mg 09/05/20 03:00 09/06/20 03:35 Enoxaparin Sodium 40 Mg/0.4 Ml Syringe SUBCUT 40 mg Q24H MEGAN Administration Hydroxyzine HCl 25 mg 09/05/20 06:06 09/05/20 16:06 Hydroxyzine Hcl 25 Mg Tablet PO 25 mg Q6H PRN Administration anxiety/restlessness Clindamycin Phosphate 600 mg in 50 mls @ 100 mls/hr 09/05/20 09:45 09/06/20 04:28 Cleocin IV Infused Q8H MEGAN Infusion Ibuprofen 400 mg 09/05/20 21:00 09/05/20 21:10 Ibuprofen 400 Mg Tablet PO 400 mg TIDWM MEGAN Administration Morphine Sulfate 3 mg 09/05/20 16:11 09/05/20 17:09 Morphine Sulfate 4 Mg/Ml Cartridge IVPUSH 3 mg Q4H PRN Administration Pain, Severe (Pain Scale 7-10) Nicotine 21 mg 09/05/20 09:00 09/05/20 09:43 Nicotine 21 Mg Patch.Td24 TRANSDERMA 21 mg DAILY MEGAN Administration Ondansetron HCl 4 mg 09/05/20 01:27 Ondansetron Hcl 4 Mg/2 Ml Vial IVPUSH Q8H PRN Nausea and Vomiting Pharmacy Consult 1 each 09/05/20 01:27 Consult Rx Vancomycin Dosing MISCELLANE DAILY PRN Consult order Pharmacy Consult 1 each 09/05/20 07:23 Consult Rx Perform Med Rec MISCELLANE ONCE PRN Consult order Sodium Chloride 3 ml 09/05/20 01:27 09/05/20 23:40 0.9 % Sodium Chloride Flush 3 Ml Syringe IVFLUSH 3 ml QSHIFT MEGAN Administration Time Spent With Patient Time: Total time spent is greater than 50% in coordination of care (as documented) at patient's floor/unit and/or counseling patient: Time with patient: 15 - 24 minutes Procedures Date of Service Date of Service: 09/06/20 Quality Stroke Does the patient have a stroke diagnosis?: No VTE Prior VTE?: No VTE Risk Level:: Medical - moderate - high VTE Device Contraindication: Treatment Not Indicated VTE Drug Contraindication: N/A - Med Ordered
[2020-09-06] MEDS: Nicotine 21 MG PATCH.TD24 TRANSDERMA (09:46)
[2020-09-06] MEDS: Ibuprofen 400 MG TABLET PO ×3 (09:46→18:07)
[2020-09-06] MEDS: cloNIDine HCL 0.1 MG TABLET PO (09:47)
[2020-09-06] MEDS: 0.9 % Sodium Chloride Flush 3 ML SYRINGE IVFLUSH ×2 (09:47→14:00)
[2020-09-06 12:00] VITALS: BP 122/67; PULSE 72; RESP 18; TEMP 36.6
--- NOTE | 2020-09-06 12:25 | HO.PM.IMPN ---
Subjective Subjective Date of Service: 09/06/20 Interval History: the patient was seen and evaluated this morning Laying in bed, pain has improved but still persistent in the right lower extremity Denies any fever, chills or shortness of breath No reported other overnight events. Systemic review: No fever, chills or weakness No chest pain, palpitation No shortness of breath or coughing No abdominal pain, nausea or vomiting No urinary symptoms right foot rash, swelling and pain Physical Exam Vital Signs: Vital Signs: Last Vital Signs Temp 96.6 F L 09/06/20 08:00 Pulse 66 09/06/20 08:00 Resp 18 09/06/20 08:00 BP 95/42 L 09/06/20 08:00 Pulse Ox 98 09/06/20 08:00 Body Mass Index 27.4 Const: Other: Constitutional : Alert, oriented, Neck : Normal inspection, Supple Cardiovascular : RRR, S1 S2, no lower extremity edema Respiratory : Good bilateral air entry, no crackles, wheezes or rhonchi Gastrointestinal: soft, lax, Normal bowel sounds, Non tender Skin : Warm/Dry, right foot dorsal area swelling, erythema and significant among the tenderness with no drainage noted Neurological : Alert & oriented x3, No focal deficit Objective Data Current Medications Generic Name Dose Route Start Last Admin Trade Name Freq PRN Reason Stop Dose Admin Acetaminophen 650 mg 09/05/20 01:27 Acetaminophen 325 Mg Tablet PO Q6H PRN Pain, Mild (Pain Scale 1-3) Clonidine HCl 0.1 mg 09/05/20 06:06 09/05/20 16:06 Clonidine Hcl 0.1 Mg Tablet PO 0.1 mg TID PRN Administration withdrawal Protocol Docusate Sodium 100 mg 09/05/20 01:27 Docusate Sodium 100 Mg Capsule PO DAILY PRN Constipation Enoxaparin Sodium 40 mg 09/05/20 03:00 09/06/20 03:35 Enoxaparin Sodium 40 Mg/0.4 Ml Syringe SUBCUT 40 mg Q24H MEGAN Administration Hydroxyzine HCl 25 mg 09/05/20 06:06 09/05/20 16:06 Hydroxyzine Hcl 25 Mg Tablet PO 25 mg Q6H PRN Administration anxiety/restlessness Clindamycin Phosphate 600 mg in 50 mls @ 100 mls/hr 09/05/20 09:45 09/06/20 11:01 Cleocin IV Infused Q8H MEGAN Infusion Ibuprofen 400 mg 09/05/20 21:00 09/06/20 09:46 Ibuprofen 400 Mg Tablet PO 400 mg TIDWM MEGAN Administration Morphine Sulfate 3 mg 09/05/20 16:11 09/05/20 17:09 Morphine Sulfate 4 Mg/Ml Cartridge IVPUSH 3 mg Q4H PRN Administration Pain, Severe (Pain Scale 7-10) Nicotine 21 mg 09/05/20 09:00 09/06/20 09:46 Nicotine 21 Mg Patch.Td24 TRANSDERMA 21 mg DAILY MEGAN Administration Ondansetron HCl 4 mg 09/05/20 01:27 Ondansetron Hcl 4 Mg/2 Ml Vial IVPUSH Q8H PRN Nausea and Vomiting Pharmacy Consult 1 each 09/05/20 01:27 Consult Rx Vancomycin Dosing MISCELLANE DAILY PRN Consult order Pharmacy Consult 1 each 09/05/20 07:23 Consult Rx Perform Med Rec MISCELLANE ONCE PRN Consult order Sodium Chloride 3 ml 09/05/20 01:27 09/06/20 09:47 0.9 % Sodium Chloride Flush 3 Ml Syringe IVFLUSH 3 ml QSHIFT MEGAN Administration Labs CBC & Chem 7: 09/06/20 07:42 09/06/20 07:42 Labs: Laboratory Results - last 24 hr 09/06/20 09/06/20 07:42 07:42 WBC 8.8 RBC 4.37 L Hgb 13.3 L Hct 39.6 L MCV 90.6 MCH 30.4 MCHC 33.6 RDW 12.5 Plt Count 276 MPV 9.6 Absolute Nucleated RBC 0.000 Nucleated RBC % (auto) 0.0 Sodium 140 Potassium 4.1 Chloride 108 Carbon Dioxide 24 Anion Gap 12 BUN 9 Creatinine 0.69 Estim Creat Clear Calc 148.8 Estimated GFR > 60 Random Glucose 97 Calcium 8.4 Microbiology Microbiology Results: Microbiology 09/04/20 22:29 Blood Culture - Preliminary Blood - Venous No growth after 24 hours. 09/04/20 22:29 Blood Culture - Preliminary Blood - Venous No growth after 24 hours. Quality Stroke Does the patient have a stroke diagnosis?: No VTE Prior VTE?: No VTE Risk Level:: Medical - moderate - high VTE Device Contraindication: Treatment Not Indicated VTE Drug Contraindication: N/A - Med Ordered Assessment and Plan (1) Cellulitis of foot, right: Status: Acute (2) Hypokalemia: Status: Acute (3) Polysubstance abuse: Status: Inactive Assessment and Plan: this is a homeless 85-year-old male with past medical history of polysubstance abuse who presents to the hospital with right foot pain cellulitis of right foot over the dorsal part of the food concerning for possible abscess CT scan of the foot showing possible abscess near the little t pending cultures antibiotics changed to clindamycin day 2 surgery input appreciated, no intervention needed, continue antibiotics # hypokalemia repleted monitor BMP # hypertension Secondary to home dose clonidine not from sepsis Decrease clonidine to p.r.n. # polysubstance abuse tobacco, heroin, as well as cocaine nicotine patches continue p.r.n. clonidine as well as hydroxyzine for potential withdrawal symptoms addiction team to evaluate the patient DVT prophylaxis Lovenox
[2020-09-06] MEDS: Morphine Sulfate 4 MG/ML CARTRIDGE 3 MG IVPUSH (13:59)
[2020-09-06] MEDS: hydrOXYzine HCL 25 MG TABLET PO (13:59)
[2020-09-06 15:11] VITALS: BP 128/60; PULSE 69; RESP 20; TEMP 36.6; O2SAT 99
[2020-09-06] MEDS: LORazepam 0.5 MG TABLET PO (15:43)
[2020-09-06] MEDS: oxyCODONE HCl Immed Release 5 MG TABLET PO (15:43)
--- NOTE | 2020-09-06 17:24 | MHC.RECOVSUP ---
Recovery Support note: This service writer advisor met with patient in to discuss his substance use and recovery supports. Patient reports he is interested in stopping his substance use and that he plans to go to [facility] after discharge. This service writer advisor discussed [facility] with patient and explained the services and supports they offer. Patient provided with information on [facility]. Patient reports no withdrawal symptoms at this time. Encouraged patient to inform nursing staff if he begins to experience any withdrawal. Patient acknowledged. Patient reports he is not interested in started methadone or Suboxone at this time. Patient reports that in the past these medications have made him feel sick. Patient reports Ativan, Clonidine and Atarax have been helpful for him historically and currently while in the hospital and that these are the medications he would hope to continue. Patient reports he does not have a PCP at this time but he plans to get one. Patient reports he has had therapy and psychiatry in the past. This service writer advisor explained that a PCP may be able to prescribe those medications for him or a psychiatrist. Patient acknowledged. This service writer advisor offered patient the opportunity to meet with a Director Imaging from [facility] while in the hospital and patient declined, stating that he just wants to rest while here. Discussed consultation with patient's RN.
[2020-09-06 19:14] VITALS: BP 122/59; PULSE 75; RESP 20; TEMP 36.9; O2SAT 98
--- NOTE | 2020-09-06 20:30 | PC.NURSE ---
Pt left Against Medical Advice 20:00September 06
--- NOTE | 2020-09-06 21:40 | PM.EVENT ---
Event Note Date of Service: 09/06/20 Event Note: pt wants to leave AMA. Adamant that he wants to leave. Stated that he may have an abscess that can cause him sepsis and potentially if not fully treated, pt understands risk but reports that he does not want to stay. given 7 day clindamycin script
--- NOTE | 2020-09-07 08:00 | P.EN_ITS ---
Event Note Date of Service: 09/07/20 Event Note: Discharge summary Discharge diagnosis Right foot cellulitis Hypokalemia Drug abuse, withdrawal The patient was on treatment with IV antibiotics pending blood cultures when he decided to leave [place]. He was d prescribed on clindamycin orally
== END 2020-09-06 20:00 | disposition left against medical advice (07) | DRG 383 ==
LOC: HO.ED 23:19 → HO.EDOVER 09-05 00:16 → HO.S3 09-05 00:23
PROVIDERS: Admitting Provider Internal Medicine; Emergency Provider Student in an Organized Health Care Education/Training Program; Visit Provider Student in an Organized Health Care Education/Training Program
DX: L03.031 Cellulitis of right toe (principal); F14.10 Cocaine abuse, uncomplicated; F19.130 Other psychoactive substance abuse with withdrawal, uncomplicated; F17.210 Nicotine dependence, cigarettes, uncomplicated; Z59.0 Homelessness; Z71.6 Tobacco abuse counseling; Z20.822 Contact with and (suspected) exposure to COVID-19; Z88.0 Allergy status to penicillin; Z79.899 Other long term (current) drug therapy
CPT/HCPCS: 36415; 73630; 73700; 80048; 80053; 80307; 81003; 82077; 83605; 83735; 85025; 85027; 85652; 86140; 87040; 87635; 99285; J0692; J1650; J1885; J2270; J3370